=== PATIENT | male | born 1990 | race Caucasian/White ===

== ENCOUNTER 2018-06-25 16:15 | Emergency (ER) | payer OTHER ==
[~2018-06-25] VITALS: Ht 177.8 cm; Wt 89.8 kg
[2018-06-25 16:25] VITALS: Ht 177.8 cm; Wt 89.8 kg
[2018-06-25 17:52] VITALS: BP 130/68
== END 2018-06-25 17:52 | disposition home or self-care (01) ==
LOC: ED 16:15
DX: R10.9 Unspecified abdominal pain (principal)